=== PATIENT | male | born 1965 | race Caucasian/White ===

== ENCOUNTER 2017-10-01 19:57 | Emergency (ER) | payer OTHER ==
[~2017-10-01] VITALS: Ht 190.5 cm; Wt 114.0 kg
[~2017-10-01 19:57] MED LIST: ADVA250A INH; ASPI1TAB57 PO; ATOR10TA15 PO; CETI10 PO; FLUT1SPR5 EACH NARE; MULT-65 PO; OMEP20TA93 PO; PERC5TAB12 PO; VITA500T83 PO; ZOFR4TAB3 SL
[2017-10-01 20:02] VITALS: BP 152/91; PULSE 104; RESP 20; TEMP 98.2; O2SAT 97
[2017-10-01 20:08] VITALS: RESP 16; O2SAT 98
--- NOTE | 2017-10-01 20:10 | PD ---
HPI Chief Complaint: Pain: Acute or Chronic Time Seen by Provider: 20:02 Travel History International Travel<30 days: No Contact w/Intl Traveler<30days: No Traveled to known affect area: No History of Present Illness HPI The patient is a 52 year old male who presents to the [facility] emergency department with a history of undergoing aortobifemoral bypass on September 18, 2017. The patient reports that he was discharged from the hospital on September 27. The patient reports that he developed blood clots immediately following the surgery and was taken back to the OR by his vascular surgeon, Dr. Walker. The patient reports that during his hospitalization he had nausea and vomiting. He reports that he has had nausea and vomiting that continued postop approximately 10 times per day. He reports that he has not moved his bowels for the last week. The patient reports that 3 hours prior to arrival he developed severe pain suddenly in the right leg and now is also experiencing pain traveling up the left leg. The patient went to [facility] for evaluation as he lives over in that area and was noted to have bilateral lower extremity numbness and tingling with pain in the right leg that is worse than the left. The patient had symptoms that were suspicious for occlusion of his aorta bifemoral bypass. A call was placed out to his vascular surgeon by the ER at that facility. They spoke to who accepted the patient in transfer. I review of systems otherwise, the patient denies having any chest pain or chest pressure. He does report having some shortness of breath with exertion. The patient reports that he quit smoking 4 years ago, however occasionally he does use an e-cigarette. Otherwise on review of systems, the patient denies having any recent fevers, worsening cough or congestion, neck pain, the patient reports having abdominal pain postop that is no worse than previously, urinary symptoms, or other neurologic symptoms. [facility] Past Medical History Narrative Medical The patient's past medical history is significant for COPD, history of coronary artery disease, history of peripheral arterial disease, allergic rhinitis, COPD , acid reflux, hyperlipidemia, peripheral neuropathy. Cancer: No Cardiovascular Problems: No Diabetes: No Endocrine: No Genitourinary: No Hepatitis: No Hiatal Hernia: No Immune Disorder: No Musculoskeletal: No Neurologic: Yes (numbness in right leg) Psychiatric: Yes (ANXIETY ATTACKS) Reproductive: No Respiratory: No (ASTHMA, COPD) Thyroid Disease: No Past Surgical History Narrative Surgical The patient's past surgical history is significant for an aortobifemoral bypass. Abdominal Surgery: No AICD: No Body Medical Devices: none Cardiac Surgery: No Ear Surgery: No Endocrine Surgery: No Eye Surgery: No Genitourinary Surgery: No Joint Replacement: No Oral Surgery: No Pacemaker: No Thoracic Surgery: No Social History Alcohol Use: No Tobacco Use: No (quit smoking 4 years ago) Substance Use: No Allergies-Medications (Allergen,Severity, Reaction): Coded Allergies: shellfish derived (Verified Allergy, Severe, Anaphylaxis, 10/01/17) Reported Meds & Prescriptions Reported Meds & Active Scripts Active Zofran Odt (Ondansetron Odt) 4 Mg Tab 4 Mg SL Q6HR PRN 7 Days Percocet (Oxycodone-Acetaminophen) 5-325 mg Tab 1 Tab PO Q4H PRN 7 Days Reported Advair Diskus Inh (Fluticasone-Salmeterol Inh) 250-50 Mcg/Blist Aer 1 Puff INH BID Rinse mouth after use. Cetirizine (Cetirizine HCl) 10 Mg Tab 10 Mg PO DAILY Multi-Vitamin Daily (Multiple Vitamin) 1 Tab Tab 1 Tab PO DAILY Flonase Nasal [place] (Fluticasone Nasal [place]) 50 Mcg/Act [place] 50 Mcg EACH NARE BID Vitamin C ER (Ascorbic Acid) 500 Mg [place] 1,000 Mg PO DAILY Atorvastatin (Atorvastatin Calcium) 10 Mg Tab 10 Mg PO HS Aspirin 81 (Aspirin) 81 Mg Tabdr 81 Mg PO DAILY Omeprazole 20 Mg Tab 20 Mg PO DAILY Review of Systems Except as stated in HPI: all other systems reviewed are Neg General / Constitutional: No: Fever Eyes: No: Visual changes HENT: No: Headaches Cardiovascular: No: Chest Pain or Discomfort Respiratory: No: Shortness of Breath Gastrointestinal: Positive: Nausea, Vomiting, Abdominal Pain, Constipation, Changes in Bowel Habits, No: Diarrhea, Hematemesis, Hematochezia, Indigestion, Loss of Appetite Genitourinary: No: Dysuria Musculoskeletal: Positive: Myalgias, Pain Skin: No Rash Neurologic: Positive: Focal Abnormalities (bilateral lower extremities worse in the right compared to the left), Paresthesia, Sensory Disturbance, No: Weakness, Change in Mentation, Slurred Speech Psychiatric: No: Depression Endocrine: No: Polydipsia Hematologic/Lymphatic: No: Easy Bruising Physical Exam Narrative General: The patient is a well-developed well-nourished male, uncomfortable appearing on arrival related to lower extremity pain. Head and Neck exam: Head is normocephalic atraumatic. Eyes: EOMI, pupils are equal round and reactive to light. Nose: Midline septum with pink mucous membranes Mouth: Dentition unremarkable. Moist mucus membranes. Posterior oropharynx is not erythematous. No tonsillar hypertrophy. Uvula midline. Airway patent. Neck: No palpable lymphadenopathy. No nuchal rigidity. No thyromegaly. Cardiovascular: Regular rate and rhythm without murmurs, gallops, or rubs. Lungs: Clear to auscultation bilaterally. No wheezes, rhonchi, or rales. Abdomen: Soft, with mild distention noted, midline incision appears to be healing well area decreased bowel sounds are audible. No point tenderness on palpation of all the quadrants of the abdomen. No guarding, rebound, or rigidity. No tenderness on palpation of McBurney's point. Extremities: No clubbing, cyanosis, or edema. 2+ pulses in bilateral upper extremities. No palpable pulses in bilateral lower extremities. The patient's lower extremities are cool to touch with reported decreased sensation worse on the right compared to the left. The patient has a prolonged capillary refill of bilateral lower extremities. Back: No costovertebral angle tenderness to palpation. Neurologic Exam: Cranial nerves 2-12 were intact on exam. Strength is 5/5 in all 4 extremities. The patient has decreased sensation reported in bilateral lower extremities worse in the right compared to the left in a stocking distribution. Skin Exam: No rash noted. Intact skin that is warm and dry. Data Data Last Documented VS Vital Signs Date Time Temp Pulse Resp B/P (MAP) Pulse Ox O2 Delivery O2 Flow Rate FiO2 10/01/17 20:36 109 20 130/82 (98) 98 Room Air 10/01/17 20:02 98.2 Orders Orders Type And Screen (10/01/17 20:05) Red Blood Cells (Rbc) (10/01/17 20:05) Chest, Single Ap (10/01/17 20:05) Iv Access Insert/Monitor (10/01/17 20:05) Ecg Monitoring (10/01/17 20:05) Oximetry (10/01/17 20:05) Heparin Infusion ALEX.Q1H (10/01/17 20:10) Heparin Inj (Heparin Inj) (10/01/17 20:15) Heparin-D5w 25,000 U/250 Ml (Heparin-D5w (10/01/17 20:15) Act Partial Throm Time (Ptt) (10/01/17 20:10) Prothrombin Time / Inr (Pt) (10/01/17 20:10) Cbc No Diff, Includes Plts (10/01/17 20:10) Cbc No Diff, Includes Plts (10/04/17 06:00) Act Partial Throm Time (Ptt) (10/02/17 03:10) Occult Blood (Hemoccult) Stool (10/01/17 20:10) Sodium Chlor 0.9% 1000 Ml Inj (Ns 1000 M (10/01/17 20:15) Fentanyl Inj (Fentanyl Inj) (10/01/17 20:30) Basic Metabolic Panel (Bmp) (10/01/17 20:29) Sodium Chlorid 0.9% 500 Ml Inj (Ns 500 M (10/01/17 21:15) Potassium Chlor 20 Meq Premix (Kcl 20 Me (10/01/17 21:15) Labs Laboratory Tests Test 10/01/17 20:15 White Blood Count 20.2 TH/MM3 Red Blood Count 4.34 MIL/MM3 Hemoglobin 12.5 GM/DL Hematocrit 36.1 % Mean Corpuscular Volume 83.2 FL Mean Corpuscular Hemoglobin 28.7 PG Mean Corpuscular Hemoglobin Concent 34.5 % Red Cell Distribution Width 13.9 % Platelet Count 309 TH/MM3 Mean Platelet Volume 8.9 FL Prothrombin Time 12.4 SEC Prothromb Time International Ratio 1.1 RATIO Activated Partial Thromboplast Time 24.8 SEC Blood Urea Nitrogen 51 MG/DL Creatinine 2.05 MG/DL Random Glucose 162 MG/DL Calcium Level 9.3 MG/DL Sodium Level 124 MEQ/L Potassium Level 3.0 MEQ/L Chloride Level 80 MEQ/L Carbon Dioxide Level 29.8 MEQ/L Anion Gap 14 MEQ/L Estimat Glomerular Filtration Rate 34 ML/MIN MDM Medical Decision Making Medical Screen Exam Complete: Yes Emergency Medical Condition: Yes Medical Record Reviewed: Yes Differential Diagnosis Thrombosis of aortobifemoral bypass, versus embolic event Narrative Course During the course of the patients emergency department visit, the patients history, examination, and differential diagnosis were reviewed with the patient. The patient was placed on a athletic monitor with oximetry and frequent blood pressure monitoring. The patient had IV access obtained and blood work sent for analysis. The patient was transferred from [facility]. Apparently according to air 1, the transport helicopter, the patient had laboratory studies ordered prior to arrival, however they were not available were completed prior to transport. No imaging studies were done at the other facility. The patient was emergently transported to this facility for evaluation by . Dr. Walker was called immediately upon the patient's arrival, at 8:01PM. He arrived in the emergency department to evaluate the patient. He requested that the patient be started on normal saline for hydration as he is concerned that the patient is dehydrated. He also requested that the patient be placed on heparin an 80 unit per KG bolus followed by an 18 unit per KG drip. He reports that due to the complexity of the patient's case he plans to transfer the patient to a [facility]. He reports that he plans to arrange for this himself. The laboratory studies done at the other facility will be obtained from [facility]. A chest x-ray was ordered at this facility. The vascular surgeon did not recommend any imaging to include CT scan at this point as he plans to emergently transfer the patient to another facility. The patients laboratory studies were reviewed from the other facility and reveal a sodium of 132, potassium of 2.4 which will be repeated with a basic metabolic profile at this facility, chloride 96, BUN 37, creatinine 1.30, glucose 120, ALT 75, AST 30, alkaline phosphatase 69, total bilirubin 1.2. PT 14.4, INR 1.2, white count 18.5, hemoglobin 13.1, platelets 297. Reevaluation and blood work done at this facility reveals a white count of 20.2 , hemoglobin 12.5, platelets 309, basic metabolic profile is remarkable for sodium of 124, potassium 3.0, chloride 80, BUN 51, creatinine 2.05, glucose 162. The patient was started on a second normal saline 500 mL bolus. The patient was given a potassium rider of 20 mEq over 2 hours. PT 12.4, INR 1.1, PTT 24.8. 2 Radiology studies were reviewed and remarkable for a chest x-ray that shows evidence of atelectasis, no other acute abnormality. The patient will be transferred to another facility for a higher level of care due to the complexity of this case. again called me after discussing the patient's transfer with [facility] in [place]. He spoke to the ER doctor who accepted the patient in transfer, Dr. Gregory Pool, as well as the vascular surgeon that will be accepting the patient in transfer, Dr. Rodney Darnell. He requested that the patient be urgently started on the heparin bolus and drip and then transferred by helicopter to that facility urgently. Diagnosis Primary Impression: Thrombosis of aortobifemoral bypass graft Qualified Codes: T82.868A - Thrombosis due to vascular prosthetic devices, implants and grafts, initial encounter Additional Impressions: Acute renal failure Qualified Codes: N17.9 - Acute kidney failure, unspecified Leukocytosis Qualified Codes: D72.829 - Elevated white blood cell count, unspecified Disposition: 70 TRANSFER TO OTHER FACILITY Condition: Serious Tita Cordoba MD Oct 01, 2017 20:10
[2017-10-01] MEDS ORDERED: HEPARIN SODIUM - IV 10,000 UNITS/10 ML VIAL IV ONE (20:15)
[2017-10-01] MEDS ORDERED: HEPARIN-D5W 25,000 U/250 ML 250 ML IV PRN (20:15)
[2017-10-01] MEDS ORDERED: SODIUM CHLOR 0.9% 1000 ML INJ 1,000 ML IV ONE (20:15)
--- NOTE | 2017-10-01 20:22 | PD.VS.PN ---
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 Ultimately d/c POD#8 with palpable pedal pulses and ambulating without difficulty. About 4 hours ago, he felt numbness in the R leg. Presented to ED and transferred to [place]. When I saw him , he was appropriately anxious. Motor intact. No femoral pulses. 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 Will hydrate and bolus with heparin. Transfer to [facility] emergently. Discussed with the patient. Gurdeep Walker MD Oct 01, 2017 20:22
[2017-10-01 20:36] VITALS: BP 130/82; PULSE 109; RESP 20; O2SAT 98
[2017-10-01 20:44] LABS: HEMATOCRIT 36.1 % (39.0-51.0); MEAN CELL VOLUME 83.2 FL (80.0-100.0); MEAN CORPUSCULAR HEMOGLOBIN 28.7 PG (27.0-34.0); MEAN CORPUSCULAR HGB CONC 34.5 % (32.0-36.0); PLATELET COUNT 309 TH/MM3 (150-450); RED BLOOD COUNT 4.34 MIL/MM3 (4.50-5.90); RED CELL DISTRIBUTION WIDTH 13.9 % (11.6-17.2); REVIEW FLAG FINAL; WHITE BLOOD COUNT 20.2 TH/MM3 (4.0-11.0)
[2017-10-01 20:58] LABS: APTT (PATIENT) 24.8 SEC (24.3-30.1); INTERNATIONAL NORMALIZED RATIO 1.1 RATIO; PROTHROMBIN TIME - PATIENT 12.4 SEC (9.8-11.6)
[2017-10-01 21:10] LABS: BICARBONATE 29.8 MEQ/L (21.0-32.0)
[2017-10-01] MEDS ORDERED: SODIUM CHLORID 0.9% 500 ML INJ 500 ML IV ONE (21:15)
[2017-10-01] MEDS ORDERED: POTASSIUM CHLOR 20 MEQ PREMIX 100 ML IV ONE (21:15)
--- NOTE | 2017-10-01 21:47 | RADRPT ---
EXAM DATE/TIME: 10/01/2017 20:24 [facility] COMPARISON: CHEST SINGLE AP, September 18, 2017, 7:24. INDICATIONS : Short of breath. MEDICAL HISTORY : A-fib, asthma. SURGICAL HISTORY : aortobifemoral bypass. ENCOUNTER: Initial ACUITY: 1 day PAIN SCORE: 0/10 LOCATION: Bilateral chest FINDINGS: The heart size is normal. There is linear density seen in the mid lungs bilaterally. No effusion is s een. CONCLUSION: Suspected bilateral areas of linear atelectasis at the mid lungs. Jaden Gan MD on October 01, 2017 at 21:44 Board Certified Radiologist. This report was verified electronically.
[2017-10-02] MEDS ORDERED: HEPARIN-D5W 25,000 U/250 ML 250 ML IV PRN (08:00)
== END 2017-10-01 21:47 | disposition short-term general hospital (02) ==
LOC: NEPC 19:57
DX: T82.868A Thrombosis due to vascular prosthetic devices, implants and grafts, initial encounter (principal); N17.9 Acute kidney failure, unspecified; D72.829 Elevated white blood cell count, unspecified; E87.6 Hypokalemia; R11.2 Nausea with vomiting, unspecified; K59.00 Constipation, unspecified; M79.604 Pain in right leg; M79.605 Pain in left leg; R20.0 Anesthesia of skin; R20.2 Paresthesia of skin; R06.02 Shortness of breath; R10.9 Unspecified abdominal pain; E78.5 Hyperlipidemia, unspecified; Z98.890 Other specified postprocedural states; Z95.1 Presence of aortocoronary bypass graft; Z87.09 Personal history of other diseases of the respiratory system; Z86.79 Personal history of other diseases of the circulatory system; Z87.19 Personal history of other diseases of the digestive system; Z86.69 Personal history of other diseases of the nervous system and sense organs
CPT/HCPCS: 71010; 80048; 85027; 85610; 85730; 86850; 86900; 86901; 86920; 96374; 96375; 99285; A0431; A0436; J1644; J3010; J7030